=== PATIENT | female | born 1960 | race Caucasian/White ===

== ENCOUNTER 2024-05-28 01:56 | Emergency (ER) | payer MEDICARE, OTHER ==
[~2024-05-28] VITALS: Ht 167.6 cm; Wt 111.8 kg
[~2024-05-28 01:56] MED LIST: ASPI-1444 PO; ATOR-2 PO; CLOT15CR23 TP; EMPA10TA3 PO; INSU3INS3 SQ; LISI20TA24 PO; NYST15PO13 TP; OMEP40CA21 PO; SEMA2PEN SQ
[2024-05-28 02:04] VITALS: BP 148/67; PULSE 70; RESP 18; TEMP 98.2; O2SAT 97
[2024-05-28 02:39] LABS: BASOPHILS % (AUTO) 0.6 % (0.0-2.0); HEMATOCRIT 43.3 % (36-46); HEMOGLOBIN 14.6 g/dL (12.0-16.0); LYMPHOCYTES # (AUTO) 3.1 K/uL (1.0-4.8); LYMPHOCYTES % (AUTO) 27.5 % (22.0-44.0); MEAN CORPUSCULAR HEMOGLOBIN 29.2 pg (26.0-34.0); MEAN CORPUSCULAR HGB CONC 33.8 G/dL (31.0-37.0); MEAN CORPUSCULAR VOLUME 86 fL (80-100); MONOCYTES # (AUTO) 0.8 K/uL (0.1-1.0); MONOCYTES % (AUTO) 6.9 % (2.0-9.0); PLATELET COUNT (AUTO) 246 K/uL (150-450); RED BLOOD CELL COUNT(AUTO) 5.01 MIL/uL (4.00-5.20); RED CELL DISTRIBUTION WIDTH 14.5 % (11.5-14.5); WHITE BLOOD COUNT (AUTO) 11.3 K/uL (4.5-11.0)
[2024-05-28 02:47] LABS: ANION GAP 6 mmol/L (8-16); CALCIUM, TOTAL 9.9 mg/dL (8.8-10.5); CARBON DIOXIDE 28 mmol/L (22-29); CHLORIDE 104 mmol/L (98-107); CREATININE 0.77 mg/dL (0.60-1.30); GLOMERULAR FILTR. RATE CALC > 60 mL/min (>60); GLUCOSE,RANDOM 167 mg/dL (70-110); SODIUM SERUM 138 mmol/L (136-145); UREA NITROGEN, BLOOD 14 mg/dL (7-18)
[2024-05-28 02:57] LABS: CREATINE KINASE, TOTAL ONLY 97 U/L (26-192); TROPONIN I-HIGH SENSITIVITY 9 ng/L (<51)
[2024-05-28 02:58] LABS: PROTHROMBIN TIME 10.3 SEC (9.4-11.6)
[2024-05-28 03:03] LABS: B-TYPE NATRIURETIC PEPTIDE 15 pg/mL (0-100)
== END 2024-05-28 03:53 | disposition home or self-care (01) ==
LOC: EMS 01:56
DX: R20.0 Anesthesia of skin (principal); E11.9 Type 2 diabetes mellitus without complications; I10 Essential (primary) hypertension; Z88.5 Allergy status to narcotic agent; Z79.4 Long term (current) use of insulin; Z79.82 Long term (current) use of aspirin; Z79.899 Other long term (current) drug therapy
CPT/HCPCS: 71045; 80048; 82550; 83880; 84484; 85025; 85610; 85730; 93005; 99283; 36415-L1; 36415-TC

== ENCOUNTER 2025-02-05 00:01 | Emergency (ER) | payer MEDICARE, OTHER ==
[~2025-02-05] VITALS: Ht 165.1 cm; Wt 109.1 kg
[2025-02-05 00:23] VITALS: TEMP 98.6
[2025-02-05 01:55] LABS: PLATELET COUNT (AUTO) 248 K/uL (150-450); RED BLOOD CELL COUNT(AUTO) 4.89 MIL/uL (4.00-5.20); RED CELL DISTRIBUTION WIDTH 14.5 % (11.5-14.5); WHITE BLOOD COUNT (AUTO) 10.2 K/uL (4.5-11.0)
[2025-02-05 02:10] LABS: CALCIUM, TOTAL 8.9 mg/dL (8.8-10.5); CREATININE 0.62 mg/dL (0.60-1.30); GLOMERULAR FILTR. RATE CALC > 60 mL/min (>60); GLUCOSE,RANDOM 217 mg/dL (70-110); SODIUM SERUM 139 mmol/L (136-145); UREA NITROGEN, BLOOD 11 mg/dL (7-18)
[2025-02-05 02:18] LABS: TROPONIN I-HIGH SENSITIVITY 10 ng/L (<51)
[2025-02-05 02:31] LABS: ASPARTATE AMINOTRANSFERASE 21.0 U/L (15-37); TOTAL PROTEIN, SERUM 6.9 g/dL (6.4-8.2)
[2025-02-05] MEDS: ONDANSETRON HCL 4 MG/2 ML VIAL IVP ONE (03:08)
[2025-02-05] MEDS: KETOROLAC TROMETHAMINE 30 MG/ML VIAL IVP ONE (03:08)
[2025-02-05] MEDS: SODIUM CHLORIDE 0.9% 1,000 ML IV ONE (03:08)
[2025-02-05 03:45] LABS: APPEARANCE,URINE CLEAR (CLEAR); GLUCOSE, URINE (UA) TRACE mg/dL (NEGATIVE); LEUKOCYTE ESTERASE ,URINE NEGATIVE (NEGATIVE); NITRATE,URINE NEGATIVE (NEGATIVE); OCCULT BLOOD,URINE NEGATIVE (NEGATIVE); SPECIFIC GRAVITIY, URINE 1.021 (1.003-1.030)
[2025-02-05 03:48] VITALS: BP 129/84; PULSE 88; RESP 17; O2SAT 98
[2025-02-05 03:54] LABS: SULFOSALICYLIC ACID,URINE 3+ (Negative)
[2025-02-05] MEDS ORDERED: ONDA-104 PO (04:19)
== END 2025-02-05 06:32 | disposition home or self-care (01) ==
LOC: EMS 00:02
DX: A08.4 Viral intestinal infection, unspecified (principal); E11.9 Type 2 diabetes mellitus without complications; I10 Essential (primary) hypertension; Z79.4 Long term (current) use of insulin; Z79.82 Long term (current) use of aspirin; Z79.85 Long-term (current) use of injectable non-insulin antidiabetic drugs; Z79.899 Other long term (current) drug therapy; Z88.5 Allergy status to narcotic agent
CPT/HCPCS: 99284; 74176; 96374; 96361; 96375; 80048; 80076; 81001; 83690; 84484; 85025; 36415; 93005; J1885; J2405; J7030; 81002; 81003

== ENCOUNTER 2025-02-26 15:20 | Emergency (ER) | payer MEDICARE, OTHER ==
[~2025-02-26] VITALS: Ht 165.1 cm; Wt 95.5 kg
[~2025-02-26 15:20] MED LIST changes: +ONDA-104 PO
[2025-02-26] MEDS ORDERED: PIOG15TA66 PO (15:43)
[2025-02-26] MEDS ORDERED: ACET-66 PO ×2 (15:43→20:37)
[2025-02-26] MEDS ORDERED: EZET10TA57 PO (15:43)
[2025-02-26] MEDS ORDERED: DULA1.5P SQ (15:43)
[2025-02-26] MEDS ORDERED: SIME80TA82 PO (15:43)
[2025-02-26] MEDS ORDERED: EMPA25TA3 PO (15:43)
[2025-02-26] MEDS: ONDANSETRON HCL 4 MG/2 ML VIAL IVP ONE (16:04)
[2025-02-26] MEDS: IOHEXOL 9 MG/ML 500 ML BOTTLE PO ONE (16:04)
[2025-02-26] MEDS: SODIUM CHLORIDE 0.9% 1,000 ML IV ONE (16:04)
[2025-02-26] MEDS: MORPHINE SULFATE 4 MG/ML SYRINGE IVP ONE (16:04)
[2025-02-26 16:08] LABS: PLATELET COUNT (AUTO) 235 K/uL (150-450); RED BLOOD CELL COUNT(AUTO) 4.72 MIL/uL (4.00-5.20); RED CELL DISTRIBUTION WIDTH 14.8 % (11.5-14.5); WHITE BLOOD COUNT (AUTO) 8.0 K/uL (4.5-11.0)
[2025-02-26 16:10] LABS: APPEARANCE,URINE CLEAR (CLEAR); GLUCOSE, URINE (UA) 70-100 mg/dL (NEGATIVE); LEUKOCYTE ESTERASE ,URINE NEGATIVE (NEGATIVE); NITRATE,URINE NEGATIVE (NEGATIVE); OCCULT BLOOD,URINE NEGATIVE (NEGATIVE); SPECIFIC GRAVITIY, URINE 1.023 (1.003-1.030)
[2025-02-26 16:11] LABS: GLUCOMETER DEV NAME(LOC) ER.7; GLUCOSE,POINT OF CARE 209 MG/DL (70-110)
[2025-02-26 16:16] LABS: CALCIUM, TOTAL 8.7 mg/dL (8.8-10.5); CREATININE 0.61 mg/dL (0.60-1.30); GLOMERULAR FILTR. RATE CALC > 60 mL/min (>60); GLUCOSE,RANDOM 212 mg/dL (70-110); SODIUM SERUM 138 mmol/L (136-145); UREA NITROGEN, BLOOD 16 mg/dL (7-18)
[2025-02-26] MEDS ORDERED: IOHEXOL 350 MG/ML 100 ML VIAL ONE (16:24)
[2025-02-26] MEDS ORDERED: 0.9% SODIUM CHLORIDE 10 ML SYRINGE IVP ONE (16:24)
[2025-02-26 16:25] LABS: LACTIC ACID 1.1 mmol/L (0.4-2.0)
[2025-02-26 16:30] LABS: SULFOSALICYLIC ACID,URINE 1+ (Negative)
[2025-02-26 16:41] LABS: TROPONIN I-HIGH SENSITIVITY 8 ng/L (<51)
[2025-02-26 20:30] VITALS: BP 141/83; PULSE 75; RESP 18; TEMP 97.3; O2SAT 98
[2025-02-26] MEDS ORDERED: OMEP-148 PO (20:37)
[2025-02-26] MEDS ORDERED: MAG30ORA11 PO (20:37)
== END 2025-02-26 21:35 | disposition home or self-care (01) ==
LOC: EMS 15:21
DX: E11.65 Type 2 diabetes mellitus with hyperglycemia (principal); R10.9 Unspecified abdominal pain; I10 Essential (primary) hypertension; Z79.4 Long term (current) use of insulin; Z79.82 Long term (current) use of aspirin; Z79.85 Long-term (current) use of injectable non-insulin antidiabetic drugs; Z79.899 Other long term (current) drug therapy; Z88.5 Allergy status to narcotic agent
CPT/HCPCS: 99284; 74177; 96374; 71045; 96361; 96375; 80048; 81001; 82962; 83605; 83690; 84484; 85025; 87077; 87086; 87186; 36415; 93005; Q9967 ×2; J2270; J2405; J7030; 81002